=== PATIENT | female | born 1975 | race Hispanic/Latino ===

== ENCOUNTER 2017-09-15 05:34 | Emergency (ER) | payer SELFPAY ==
[2017-09-15] MEDS ORDERED: traMADol HCl 50 MG TAB ONE (07:05)
--- NOTE | 2017-09-15 08:56 | RAD ---
RIGHT ANKLE 3 VIEWS: Date: 09/15/17 HISTORY: Fall. Right ankle injury. FINDINGS: Comminuted, predominantly oblique fracture of the distal fibula at and just above the level of the an kle mortise results in 0.7 cm gap and 0.9 cm posterior displacement of the major distal fragment. Min imal lateral shift of the talus. Posterior and medial malleoli are intact. Talar dome maintained. IMPRESSION: Comminuted, mildly displaced Landaverde Class C fracture right lateral malleolus. POS: [facility]
== END 2017-09-15 07:43 | disposition home or self-care (01) ==
LOC: ERS 05:34
DX: S82.61XA Displaced fracture of lateral malleolus of right fibula, initial encounter for closed fracture (principal); W01.0XXA Fall on same level from slipping, tripping and stumbling without subsequent striking against object, initial encounter; Y92.009 Unspecified place in unspecified non-institutional (private) residence as the place of occurrence of the external cause

== ENCOUNTER 2018-04-29 18:53 | Emergency (ER) | payer SELFPAY ==
[2018-04-29 19:27] LABS: Bilirubin Negative (Negative); Blood, Urine Negative (Negative); Clarity CLEAR (Clear); Glucose, Urine (Dipstick) Negative (Negative); Leukocyte Trace (Negative); Nitrite Negative (Negative); Protein, Urine (Dipstick) Negative (Neg-Trace); Specific Gravity, Urine 1.024 (1.002-1.036)
[2018-04-29 19:29] LABS: Bacteria/HPF Rare-Few HPF (None Seen); Hyaline Casts/LPF 0-3 HYALINE CAST LPF (0-3 Hyaline); Pathc Cast-AUWi Flag 0.58 (0-2.49); WBC/HPF 0-3 HPF (0-3)
[2018-04-29 19:36] LABS: #Basophils 0.1 thou/uL (0.0-0.2); #Eosinphils 0.2 thou/uL (0.0-0.7); #Monocytes 0.5 thou/uL (0.11-0.59); #Neutrophils 7.7 thou/uL (1.40-6.50); %Basophils 0.6 % (0.0-1.0); %Eosinophils 2.1 % (0.0-10.0); %Lymphocytes 26.5 % (21.0-51.0); %Monocytes 3.9 % (0.0-10.0); %Neutrophils 66.9 % (42.0-75.0); Hemoglobin 12.2 g/dL (12.0-16.0); Mean Corpuscular HGB CONC 34.4 g/dL (32.0-36.0); Mean Corpuscular Hemoglobin 31.7 pg (27.0-31.0); Mean Corpuscular Volume 91.9 fL (78.0-98.0); Mean Platelet Volume 8.9 fL (7.4-10.4); Platelet Count 262 thou/uL (130-400); RBC Distribution Width 11.1 % (11.5-14.5); Red Blood Cell (RBC) Count 3.87 mill/uL (4.20-5.40); White Blood Cell (WBC) Count 11.4 thou/uL (4.8-10.8)
[2018-04-29 19:58] LABS: ALT (SGPT) 140 U/L (8-55); AST (SGOT) 94 U/L (5-34); Albumin 3.8 g/dL (3.5-5.0); Alkaline Phosphatase 119 U/L (40-150); Anion Gap 13 mmol/L (10-20); BUN (Urea Nitrogen) 10 mg/dL (7.0-18.7); Bilirubin, Total 0.5 mg/dL (0.2-1.2); Calc. Creatinine Clearance 0 mL/min (70-130); Calcium 9.1 mg/dL (7.8-10.44); Carbon Dioxide 25 mmol/L (22-29); Chloride 105 mmol/L (98-107); Estimated GFR-MDRD Greater than 90; Globulin 3.3 g/dL (2.4-3.5); Glucose 143 mg/dL (70-105); Potassium 3.5 mmol/L (3.5-5.1); Protein, Total 7.1 g/dL (6.0-8.3); Sodium 139 mmol/L (136-145)
--- NOTE | 2018-04-29 21:30 | ULT ---
PELVIC ULTRASOUND: 04/29/18 HISTORY: Lower abdominal/pelvic pain. TECHNIQUE: Multiplanar elizondo scale and color doppler images were obtained in a transabdominal and transvaginal pe lvic ultrasound. Spectral analysis of the doppler waveforms of the ovaries were performed. FINDINGS: The uterus has been removed. The left ovary has been removed. The right ovary contains a follicle/cys t which is septated and measures 3.4 cm in greatest dimension. Normal flow is seen within the right ovary. No free fluid is seen in the pelvis. IMPRESSION: Right ovarian cyst/follicle. POS: [facility]
[2018-04-29] MEDS ORDERED: Ketorolac Tromethamine 30 MG/ML VIAL ONE (21:37)
== END 2018-04-29 22:14 | disposition home or self-care (01) ==
LOC: ERS 18:53
DX: M54.5 Low back pain (principal); N83.201 Unspecified ovarian cyst, right side; R74.0 Nonspecific elevation of levels of transaminase and lactic acid dehydrogenase [LDH]
CPT/HCPCS: 36415; 76856; 80053; 81003; 81015; 85025; 96372; J1885

== ENCOUNTER 2021-09-20 08:25 | Emergency (ER) | payer SELFPAY ==
[2021-09-20] MEDS ORDERED: Ketorolac Tromethamine 30 MG/ML VIAL ONE (08:51)
== END 2021-09-20 09:07 | disposition home or self-care (01) ==
LOC: ERS 08:25
DX: M54.32 Sciatica, left side (principal); E11.9 Type 2 diabetes mellitus without complications
CPT/HCPCS: 96372; 99283; J1885

== ENCOUNTER 2024-01-21 08:00 | Emergency (ER) | payer SELFPAY | END 2024-01-21 09:47 | disposition home or self-care (01) | LOC: ERS 08:00 | DX: L03.213 Periorbital cellulitis (principal); H01.004 Unspecified blepharitis left upper eyelid; E11.9 Type 2 diabetes mellitus without complications; Z75.3 Unavailability and inaccessibility of health-care facilities | CPT/HCPCS: 99283 ==

== ENCOUNTER 2024-02-10 08:53 | Emergency (ER) | payer SELFPAY | END 2024-02-10 11:33 | disposition home or self-care (01) | LOC: ERS 08:53 | DX: S00.03XA Contusion of scalp, initial encounter (principal); E11.9 Type 2 diabetes mellitus without complications; Z79.84 Long term (current) use of oral hypoglycemic drugs; V49.9XXA Car occupant (driver) (passenger) injured in unspecified traffic accident, initial encounter | CPT/HCPCS: 70450 ==